=== PATIENT | female | born 1980 | race Caucasian/White ===

== ENCOUNTER → 2017-01-17 | Outpatient (CLI) | payer OTHER ==
[~2017-01-17] MED LIST: ALAVERT10 MG PO; IBUPROFEN800 MG PO; ZANTAC300 MG PO
--- NOTE | ~2017-01-17 | US98 ---
[facility] A Service of [facility] RADIOLOGY TEXT RESULTS PATIENT: MOYDECEMBER R LOCATION: [facility] : [birth year] UNIT #: [id number] AGE: [address]: Yrn Dillon MD SEX: F ORDER DR: [id number] [address] [address] [id number] O MR#: [id number] Acc #: [id number] NAME: MOY DECEMBER : 1980 SEX: F STUDY DATE/TIME: 01/17/2017 10:14 UNIT: [facility] ROOM: STUDY DESCRIPTION: US Pelvic Non-OB Complete Attending Physician: Yrn Dillon M.D. Referring Physician: Yrn Dillon M.D. Ordering Physician: Yrn Dillon M.D. Primary Care Physician: Adriana Lozano A.P.R.N. MEDICAL IMAGING REPORT This report is preliminary unless electronic signature is present. EXAM Pelvic ultrasound. INDICATION Heavy menses and uterine tenderness for 9 months. The patient's last normal menstrual period was January 17, 2017. TECHNIQUE Martinez-scale, color Doppler, and spectral Doppler waveform analysis was performed through the patient's pelvis both transabdominally and transvaginally. FINDINGS The patient's uterus is unremarkable. It measures 4.9 x 8.4 x 4.9 cm. Endometrium measures about 8 mm in thickness. The patient is noted to have a nabothian cyst measuring up to 1.1 x 0.9 x 1.2 cm. Right ovary shows normal color Doppler flow. Left ovary cannot be visualized due to overlying bowel gas. IMPRESSION 1. Nabothian cyst, otherwise, unremarkable uterus. 2. Left ovary could not be visualized. Right ovary appears within normal limits. Dictated by... Britteny Giordano M.D. THIS IS AN ELECTRONICALLY VERIFIED REPORT Brittney Giordano M.D. at 01/20/2017 7:56 AM AFF/jt [facility] A Service [facility] RADIOLOGY TEXT RESULTS PATIENT: MOYJANET R LOCATION: [facility] : [birth year] UNIT #: [id number] AGE: [address]: Yrn Dillon MD SEX: F ORDER DR: TD: 01/17/2017 21:23 JOB #: [id number] MEDICAL IMAGING REPORT Page 1 of 1
== END | disposition home or self-care (01) ==
LOC: SGUS 09:57
DX: N92.0 Excessive and frequent menstruation with regular cycle (principal); N88.8 Other specified noninflammatory disorders of cervix uteri
CPT/HCPCS: 76830; 76856

== ENCOUNTER 2017-05-19 09:19 | Emergency (ER) | payer OTHER ==
[~2017-05-19] VITALS: Ht 170.2 cm; Wt 73.5 kg
--- NOTE | ~2017-05-19 | US98 ---
[facility] A Service of [facility] RADIOLOGY TEXT RESULTS PATIENT: JANET WINTER LOCATION: [facility] : 82 UNIT #: [id number] AGE: [address]: Monique Nelson SEX: F ORDER DR: [id number] [facility] [address] [place], [place] [address] [id number] E MR#: [id number] Acc #: [id number] NAME: JANET WINTER. : 1980 SEX: F STUDY DATE/TIME: 05/19/2017 12:52 UNIT: [facility] ROOM: STUDY DESCRIPTION: US Pelvic Non-OB Complete Attending Physician: Monique Nelson Pa-C Ordering Physician: Monique Nelson Pa-C Primary Care Physician: Adriana Lozano A.P.R.N. MEDICAL IMAGING REPORT This report is preliminary unless electronic signature is present EXAM Ultrasound pelvic non-OB complete HISTORY Pain. Left upper quadrant pain since 01:00 a.m. today. No vaginal bleeding. ER doctor says uterus is enlarged. Determine age. FINDINGS Real-time ultrasonography pelvis performed transabdominal and transvaginal imaging. Transvaginal imaging utilized for better visualization of uterine and adnexal structures. Nabothian cyst at the cervix measuring approximately 1.09 cm x 1.03 cm x 1.25 cm. Uterus measures approximately 6.4 cm x 10.7 cm x 5.6 cm. Myometrium unremarkable. There is an intrauterine present with gestational sac and pole identified. Deport rump length suggests gestational age 8 weeks, 2 days. Gestational sac diameters suggest gestational age 9 weeks, 3 days. Cardiac activity is present in the pole with heart rate 152 beats per minute. Left ovary measures 2.1 cm x 1.9 cm x 2.2 cm. It contains a simple cyst measuring 1.5 cm x 1.5 cm x 1.3 cm most likely corpus luteum of . There is no free fluid in the pelvis. Right ovary measures approximately 3.37 cm x 2.36 cm x 2.76 cm. Arterial and venous flow noted in the bilateral ovaries. IMPRESSION 1. Single intrauterine . pole, yolk sac, gestational sac identified. Deport rump length suggests gestational age 8 weeks, 2 days. Gestational sac diameters suggest gestational age 9 weeks, 3 days. Cardiac activity is present with heart rate 152 beats per minute. 2. Nabothian cysts at level of uterine cervix measuring up to 1.2 cm in diameter. 3. Arterial and venous flow in bilateral ovaries. There is a [facility] A Service of [facility] RADIOLOGY TEXT RESULTS PATIENT: MOYDecember LOCATION: [facility] : 82 UNIT #: [id number] AGE: [address]: Monique Nelson SEX: F ORDER DR: simple-appearing cyst in the left ovary measuring up to 1.5 cm in diameter and favored to be corpus luteum of . Dictated by... Olu Cook M.D. THIS IS AN ELECTRONICALLY VERIFIED REPORT Olu Cook M.D. at 05/20/2017 4:57 PM Brenda TD: 05/20/2017 08:51 JOB #: [id number] MEDICAL IMAGING REPORT Page 1 of 1 COPY
[2017-05-19 09:43] LABS: URINE SOURCE CLEAN CATCH
[2017-05-19 09:50] LABS: URINE APPEARANCE CLOUDY; URINE BILIRUBIN NEG (NEG); URINE BLOOD NEG (NEG); URINE COLOR DK YELLOW; URINE GLUCOSE NEG (NEG); URINE KETONE TRACE (NEG); URINE LEUKOCYTE ESTERASE 3+ (NEG); URINE NITRATE NEG (NEG); URINE PH 6.5 (5-8); URINE PROTEIN TRACE (NEG); URINE SPECIFIC GRAVITY 1.025 (1.003-1.035)
[2017-05-19 09:52] LABS: CULTURE INDICATED? YES; URINE BACTERIA AUWI 1+ (NEGATIVE); URINE SQUAMOUS EPITHELIAL CELL MOD /[HPF]; UWBCS1 AUWI 50-100 (0-5)
[2017-05-19 10:05] LABS: U HYALINE CASTS AUWI 0-2 /[LPF]; URINE TRICHOMONAS PRESENT
[2017-05-19 10:32] LABS: BASOPHIL# 0.1 X10e3 (0-0.3); BASOPHIL% 1.1 % (0-2.5); EOSINOPHIL# 0.1 X10e3 (0-0.7); EOSINOPHIL% 0.4 % (0.0-7.0); HEMATOCRIT 39.1 % (35.0-45.0); LYMPHOCYTE# 2.3 X10e3 (1.0-3.5); LYMPHOCYTE% 18.2 % (17.0-45.0); MEAN CELL VOLUME 87.4 FL (83-96); MEAN CORPUSCULAR HEMOGLOBIN 29.1 PG (28-34); MEAN CORPUSCULAR HGB CONC 33.3 g/dL (30-36); MEAN PLATELET VOLUME 8.5 FL (6.5-11.5); MONOCYTE# 0.7 X10e3 (0-1.0); MONOCYTE% 5.8 % (3.0-12.0); NEUTROPHIL# 9.3 X10e3 (1.5-7.1); NEUTROPHIL% 74.5 % (40-75); PLATELET COUNT 320 X10e3 (140-420); RED BLOOD COUNT 4.47 X10e (3.90-5.30); RED CELL DISTRIBUTION WIDTH 14.3 % (11.0-15.5); WHITE BLOOD COUNT 12.5 X10e3 (4.0-10.5)
[2017-05-19 10:34] LABS: DIFF IND NO
[2017-05-19 10:58] LABS: ALBUMIN SERUM 3.6 g/dL (3.5-5.0); ALKALINE PHOSPHATASE 66 U/L (32-92); ALT (SGPT) 8 U/L (10-40); AST (SGOT) 13 U/L (10-42); BILIRUBIN,TOTAL 0.5 mg/dL (0.2-2.0); BLOOD UREA NITROGEN 6 mg/dL (9-23); CALCIUM SERUM 9.1 mg/dL (8.4-10.2); CARBON DIOXIDE 24 mmol/L (22-31); CHLORIDE 104 mmol/L (100-111); CREATININE SERUM 0.6 mg/dL (0.6-1.4); GLOM FILT RATE Estimated 117.3 mL/min (>60); GLUCOSE FASTING 89 mg/dL (70-110); POTASSIUM 3.8 mmol/L (3.5-5.1); PROTEIN TOTAL SERUM 7.2 g/dL (6.0-8.3); SODIUM 135 mmol/L (135-145)
[2017-05-19 10:59] LABS: BILIRUBIN, DIRECT <0.1 mg/dL (0.0-0.2); BILIRUBIN,INDIRECT 0.4 mg/dL (0.0-0.9)
[2017-05-20 20:37] LABS: CHLAMYDIA TRACH Not Detected (Not Detected); N GONOR Not Detected (Not Detected)
== END 2017-05-19 15:16 | disposition home or self-care (01) ==
LOC: CED 09:19
PROVIDERS: Physician Assistant Medical
DX: O99.89 Other specified diseases and conditions complicating pregnancy, childbirth and the puerperium (principal); R19.7 Diarrhea, unspecified; O99.341 Other mental disorders complicating pregnancy, first trimester; O99.331 Smoking (tobacco) complicating pregnancy, first trimester; F17.210 Nicotine dependence, cigarettes, uncomplicated; F41.9 Anxiety disorder, unspecified; F32.9 Major depressive disorder, single episode, unspecified
CPT/HCPCS: 36415; 76830; 76856; 80048; 80076; 81003; 84702; 84703; 85025; 87086; 87491; 87591; 87808; 87905; 96360; 99284